=== PATIENT | female | born 1940 | race Caucasian/White ===

== ENCOUNTER 2017-01-15 14:56 | Emergency (ER) | payer MEDICARE, OTHER ==
[2017-01-15 15:06] VITALS: O2SAT 98
[2017-01-15] MEDS ORDERED: Sodium Chloride 0.9% 500 ML IV SCH (15:30)
--- NOTE | 2017-01-15 15:38 | ED PDOC ---
HPI: Female Pain Time Seen by Provider: 01/15/17 15:12 Chief Complaint (Nursing): Female Genitourinary Chief Complaint (Provider): Female Genitourinary History Per: Patient History/Exam Limitations: no limitations Onset/Duration Of Symptoms: Days (x6) Additional Complaint(s): Dawna Wisdom is a 76 year old female that presents to the ED with a chief complaint of dysuria, frequency, and hesitancy with associated suprapubic pain that she has been experiencing for the past week. Patient reports that she saw her PMD Dr. Acuna 6 days ago, who informed that she had a uti and was given Pyridium 5 days ago, as well as an unknown antibiotic 3 days ago. She denies any flank pain, vaginal discharge, fever, nausea, vomiting, or diarrhea. Of Note: Patient denies history of renal colic. Past Medical History Reviewed: Historical Data, Nursing Documentation, Vital Signs Vital Signs: Last Vital Signs Temp 98 F 01/15/17 15:03 Pulse 82 01/15/17 15:03 Resp 18 01/15/17 15:03 BP 149/80 01/15/17 15:03 Pulse Ox 98 01/15/17 15:03 - Medical History PMH: HTN - Family History Family History: States: Unknown Family Hx - Social History Current smoker - smoking cessation education provided: No Alcohol: None Drugs: Denies - Home Medications Home Medications: Ambulatory Orders Medication Instructions Recorded Cephalexin [Keflex] 500 mg PO QID #40 capsule 01/15/17 - Allergies Allergies/Adverse Reactions: Allergies Allergy/AdvReac Type Severity Reaction Status Date / Time iodine AdvReac RASH Verified 01/15/17 15:25 Iodine and Iodide Containing AdvReac RASH Verified 01/15/17 15:25 Produc Review of Systems Constitutional: Negative for: Fever, Chills Cardiovascular: Negative for: Chest Pain, Palpitations, Orthopnea, Paroxysmal Noc. Dyspnea Respiratory: Negative for: Cough, Shortness of Breath, SOB with Exertion Gastrointestinal: Negative for: Nausea, Vomiting, Diarrhea, Constipation Genitourinary Female: Positive for: Dysuria, Frequency, Other (hesitancy). Negative for: Vaginal Discharge, Vaginal Bleeding Musculoskeletal: Negative for: Neck Pain, Other (denies flank pain) Skin: Negative for: Rash Neurological: Negative for: Weakness, Numbness Physical Exam - Reviewed Nursing Documentation Reviewed: Yes Vital Signs Reviewed: Yes - Physical Exam Appears: Positive for: Well, Non-toxic, No Acute Distress Head Exam: Positive for: ATRAUMATIC, NORMOCEPHALIC Skin: Positive for: Normal Color, Warm Neck: Positive for: Normal, Supple Cardiovascular/Chest: Positive for: Regular Rate, Rhythm. Negative for: Murmur Respiratory: Positive for: Normal Breath Sounds. Negative for: Rhonchi, Stridor , Wheezing Gastrointestinal/Abdominal: Positive for: Normal Exam, Soft. Negative for: Tenderness, Mass, Distended Back: Positive for: Normal Inspection. Negative for: L CVA Tenderness, R CVA Tenderness Extremity: Positive for: Normal ROM. Negative for: Tenderness Neurologic/Psych: Positive for: Alert, Oriented. Negative for: Motor/Sensory Deficits - Laboratory Results Result Diagrams: 01/15/17 15:03 01/15/17 15:03 - ECG O2 Sat by Pulse Oximetry: 98 (RA) Pulse Ox Interpretation: Normal Medical Decision Making Medical Decision Making: Impression: uti vs renal colic Plan: * CT A/P w/o PO contrast to r/o kidney stones * CMP * CBC * Urine Culture * Urinalysis * Sodium Chloride 500 mLs at 500 mLs/hr * Reevaluation Scribe Attestation: Documented by Kristine Reed, acting as a scribe for Abby Healy MD. Provider Scribe Attestation: All medical record entries made by the Scribe were at my direction and personally dictated by me. I have reviewed the chart and agree that the record accurately reflects my personal performance of the history, physical exam, medical decision making, and the department course for this patient. I have also personally directed, reviewed, and agree with the discharge instructions and disposition. CT shows "Diffuse bladder wall thickening, undistended bladder. Cystitis should be considered. Stable nonobstructing subcentimeter calculus midpole region left kidney. Additional benign and/or incidental findings described above." Patient is afebrile with normal wbc and is tolerating po. Called PMD Dr. Gurjit Clements, /[phone]. I spoke to patient's PMD and he reports that patient had previously been prescribed levaquin. Due to normal cbc and that patient is afebrile and not septic, he recommends keflex and will see in his office on Thursday. Patient was given detailed return instructions. UCx sent. Disposition - Clinical Impression Clinical Impression: Cystitis - Disposition Disposition: Routine/Home Disposition Time: 17:37 Condition: GOOD Additional Instructions: Follow up with Dr. Clements on Thursday morning. Take full course of antibiotics. Return to ED if condition worsens. Prescriptions: Cephalexin [Keflex] 500 mg PO QID #40 capsule Instructions: Urinary Tract Infection in Women (ED) Print Language: YI
[2017-01-15 15:45] LABS: BASO # 0.1 K/uL (0.0-0.2); BASO % 0.8 % (0.0-2.0); EOS # 0.2 K/uL (0.0-0.7); EOS % 3.3 % (0.0-4.0); HEMOGLOBIN 11.1 g/dL (12.0-16.0); LYMPH # 1.6 K/uL (1.0-4.3); LYMPH % 21.4 % (20.0-40.0); MEAN CELL VOLUME 86.9 fl (81.0-99.0); MEAN CORPUSCULAR HEMOGLOBIN 28.1 pg (27.0-31.0); MEAN CORPUSCULAR HGB CONC 32.3 g/dL (33.0-37.0); MONO # 1.2 K/uL (0.0-0.8); MONO % 16.3 % (0.0-10.0); NEUT # 4.3 K/uL (1.8-7.0); NEUT % 58.2 % (50.0-75.0); RBC 3.97 Mil/uL (3.80-5.20); RED CELL DISTRIBUTION WIDTH 14.8 % (11.5-14.5); WHITE BLOOD COUNT 7.3 K/uL (4.8-10.8)
[2017-01-15 15:56] LABS: ALB/GLOB RATIO 1.3 (1.0-2.1); ALT/SGPT 37 U/L (9-52); AST/SGOT 28 U/L (14-36); BLOOD UREA NITROGEN 21 mg/dl (7-17); CALCIUM 9.2 mg/dL (8.4-10.2); GFR AFRICAN-AMERICAN > 60; GFR NON-AFRICAN AMERICAN 54
--- NOTE | 2017-01-15 16:35 | CT ---
PROCEDURE: CT Abdomen and Pelvis without intravenous contrast HISTORY: flank pain, hematuria COMPARISON: 02/09/2012 CT abdomen and pelvis. TECHNIQUE: Unenhanced study. Neither oral nor intravenous contrast administered. Radiation dose: Total exam DLP = 838.05 mGy-cm. This CT exam was performed using one or more of the following dose reduction techniques: Automated exposure control, adjustment of the mA and/or kV according to patient size, and/or use of iterative reconstruction technique. FINDINGS: LOWER THORAX: Unremarkable. LIVER: Unremarkable. No gross lesion or ductal dilatation. GALLBLADDER AND BILE DUCTS: Unremarkable. PANCREAS: Unremarkable. No gross lesion or ductal dilatation. SPLEEN: Unremarkable. ADRENALS: Unremarkable. No mass. KIDNEYS AND URETERS: Unremarkable. No hydronephrosis. No solid mass. Incidental finding(s): Nonobstructing calculus disease midpole region left kidney. Solitary calculus 5 mm unchanged compared to the prior study. VASCULATURE: Unremarkable. No aortic aneurysm. BOWEL: Diverticulosis without an acute inflammatory component or other associated pathologic process. APPENDIX: No abnormalities to suggest acute appendicitis. No right lower quadrant inflammatory processes identified. PERITONEUM: Unremarkable. No free fluid. No free air. LYMPH NODES: Unremarkable. No enlarged lymph nodes. BLADDER: Incompletely distended urinary bladder. Mild bladder wall thickening. Cystitis should be considered in the appropriate clinical presentation. No focal abnormalities with respect to the bladder wall. No bladder calculi detected. REPRODUCTIVE: Unremarkable. BONES: No acute fracture. OTHER FINDINGS: None. IMPRESSION: Diffuse bladder wall thickening, undistended bladder. Cystitis should be considered. Stable nonobstructing subcentimeter calculus midpole region left kidney. Additional benign and/or incidental findings described above.
[2017-01-15 17:03] LABS: SQUAMOUS EPITHIAL < 1 /hpf (0-5); URINE BACTERIA OCC (<OCC); URINE BILIRUBIN NEGATIVE (NEGATIVE); URINE BLOOD SMALL (NEGATIVE); URINE CLARITY SLIGHTY-CLOUDY (Clear); URINE COLOR AMBER (YELLOW); URINE GLUCOSE (UA) NEG (Normal); URINE HYALINE CAST 0-2 /hpf (0-2); URINE LEUKOCYTE ESTERASE MOD Leu/uL (Negative); URINE NITRATE POSITIVE (NEGATIVE); URINE PROTEIN 100 mg/dL (NEGATIVE)
[2017-01-15 17:58] VITALS: BP 128/78; PULSE 78; RESP 19; TEMP 97.7
== END 2017-01-15 17:58 | disposition home or self-care (01) ==
LOC: H.ER 14:56
DX: N30.91 Cystitis, unspecified with hematuria (principal)

== ENCOUNTER 2017-10-29 09:47 | Day surgery (SDC) | payer MEDICARE, OTHER ==
[2017-10-29] MEDS ORDERED: Lactated Ringer's 500 ML IV ONE (09:59)
[2017-10-29] MEDS ORDERED: Etomidate 20 mg/10ml Inj IV ONE (11:07)
[2017-10-29] MEDS ORDERED: Propofol 10 mg/ml Inj (20 ML) ONE (11:16)
[2017-10-29 11:46] VITALS: BP 153/83; PULSE 84; RESP 15; TEMP 98.1; O2SAT 98
== END 2017-10-29 12:28 | disposition home or self-care (01) ==
LOC: H.ENDO 09:47
PROVIDERS: ATTEND Internal Medicine Gastroenterology
DX: Z86.010 Personal history of colon polyps (principal); I25.10 Atherosclerotic heart disease of native coronary artery without angina pectoris; J44.9 Chronic obstructive pulmonary disease, unspecified; E11.9 Type 2 diabetes mellitus without complications; E78.5 Hyperlipidemia, unspecified; I10 Essential (primary) hypertension; K57.30 Diverticulosis of large intestine without perforation or abscess without bleeding
CPT/HCPCS: G0105; J2001; J2704; J7120